=== PATIENT | female | born 1950 | race Caucasian/White ===

== ENCOUNTER 2017-07-21 12:07 | Emergency (ER) | payer OTHER ==
[~2017-07-21] VITALS: Ht 160 cm; Wt 93.1 kg
[~2017-07-21 12:07] MED LIST: ALBU25PO2; FLUT1DIS INH; LEVO100T; NAPR500T PO; [UNRECOGNIZED DRUG - REMARK]
[2017-07-21] MEDS ORDERED: SODIUM CHLORIDE 0.9% 1,000ML IVBOLUS ONE (13:30)
[2017-07-21] MEDS ORDERED: ONDANSETRON 2MG/ML, 2ML IVPush ONE (13:30)
[2017-07-21] MEDS ORDERED: SODIUM CHLORIDE FLUSH 10ML SYR IVF ONE (13:30)
[2017-07-21 13:50] LABS: HEMATOCRIT 44.4 % (34.6-47.8); HEMOGLOBIN 15.1 g/dL (11.7-16.4); WHITE BLOOD COUNT 5.8 x10^3/uL (3.4-10)
[2017-07-21 13:51] LABS: PATH.CAST-FLAG NOT PRESENT; SPERM-FLAG NOT PRESENT; SRC-FLAG NOT PRESENT; XTAL-FLAG NOT PRESENT; YLC-FLAG NOT PRESENT
[2017-07-21 13:58] LABS: BLOOD UREA NITROGEN 11 mg/dL (7-18)
[2017-07-21] MEDS ORDERED: ONDANSETRON 2MG/ML, 2ML ONE (13:58)
[2017-07-21 16:57] VITALS: BP 159/92
== END 2017-07-21 17:05 | disposition home or self-care (01) ==
LOC: ED 15:20
DX: R10.9 Unspecified abdominal pain (principal); R11.10 Vomiting, unspecified; R19.7 Diarrhea, unspecified; Z88.0 Allergy status to penicillin; E78.5 Hyperlipidemia, unspecified; E03.9 Hypothyroidism, unspecified; J45.909 Unspecified asthma, uncomplicated
CPT/HCPCS: 36415; 74022; 80048; 81001; 82040; 85025; 87086; 87324; 96361; 96374; 99285; J2405; J7030

== ENCOUNTER 2018-06-30 13:18 | Observation (INO) | payer OTHER ==
[~2018-06-30] VITALS: Ht 160 cm; Wt 98.2 kg
[~2018-06-30 13:18] MED LIST changes: +NAPR-856 PO; -NAPR500T PO
[2018-06-30] MEDS ORDERED: ASPIRIN 81 MG TABLET CHEW PO ONE (14:00)
[2018-06-30] MEDS ORDERED: ASPIRIN 81 MG TABLET EC ONE (14:05)
[2018-06-30 14:31] LABS: BASOPHILS # (AUTO) 0.03 x10^3/uL (0-0.1); BASOPHILS % (AUTO) 0 % (0-1); EOSINOPHILS # (AUTO) 0.07 x10^3/uL (0-0.4); EOSINOPHILS % (AUTO) 1 % (1-7); LYMPHOCYTES # (AUTO) 1.62 x10^3/uL (1-3.4); LYMPHOCYTES % (AUTO) 20 % (22-44); MD NO; MEAN CORPUSCULAR HGB CONC 33.9 g/dL (32.4-35.8); MEAN CORPUSCULAR VOLUME 88.6 fL (80-100); MEAN PLATELET VOLUME 7.6 fL (7.4-10.4); MONOCYTES # (AUTO) 0.75 x10^3/uL (0.2-0.8); MONOCYTES % (AUTO) 9 % (2-9); NEUTROPHILS % (AUTO) 69 % (42-75); PLATELET COUNT 297 x10^3/uL (130-400); RED BLOOD COUNT 4.89 x10^6/uL (3.82-5.3); RED CELL DISTRIBUTION WIDTH 14.3 % (9.6-15.2)
[2018-06-30 14:32] LABS: ALANINE AMINOTRANSFERASE 26 U/L (12-78); ALBUMIN 3.8 g/dL (3.4-5.0); ANION GAP 9 mmol/L (5-15); CHLORIDE 107 mmol/L (98-107); CREATININE 0.87 mg/dL (0.55-1.02)
[2018-06-30 14:35] LABS: ALKALINE PHOSPHATASE 122 U/L (45-117); BILIRUBIN,TOTAL 1.2 mg/dL (0.2-1.0); TOTAL PROTEIN 7.3 g/dL (6.4-8.2); TROPONIN I < 0.015 ng/mL (0.000-0.045)
[2018-06-30 16:24] VITALS: BP 154/87
[2018-06-30] MEDS ORDERED: NITROGLYCERIN 0.4 MG/SPRAY SL PRN (16:30)
[2018-06-30] MEDS ORDERED: morphine SULFATE 10 MG/ML, 1ML IV PRN (16:30)
[2018-06-30] MEDS ORDERED: POLYETHYLENE GLYCOL 17 GM PACKET PO PRN (16:30)
[2018-06-30] MEDS ORDERED: ENOXAPARIN 40 MG/0.4 ML SQ SCH (16:30)
[2018-06-30] MEDS ORDERED: CALCIUM CARBONATE 500 MG TAB.CHEW PO PRN (16:30)
[2018-06-30] MEDS ORDERED: ACETAMINOPHEN 650 MG/20.3 ML UDC PO PRN (16:30)
[2018-06-30] MEDS ORDERED: BISACODYL 10 MG SUPP PR PRN (16:30)
[2018-06-30] MEDS ORDERED: ONDANSETRON 2MG/ML, 2ML IVP PRN (16:30)
[2018-06-30] MEDS ORDERED: NITROGLYCERIN SINGLE TAB 0.4 MG SL PRN (16:30)
[2018-06-30] MEDS ORDERED: NITROGLYCERIN 0.4 MG BOTTLE (25 TABS) SL PRN (16:30)
[2018-06-30] MEDS ORDERED: ZOLPIDEM 5MG TABLET PO PRN (16:30)
[2018-06-30] MEDS ORDERED: MAALOX/HYOSCYAMINE/LIDOCAINE 45 ML BTL PO PRN (16:30)
[2018-06-30] MEDS ORDERED: ALBU18HF INH (16:55)
[2018-06-30] MEDS ORDERED: ATOR20TA9 PO (16:55)
[2018-06-30] MEDS ORDERED: LEVO75TA5 PO (16:55)
[2018-06-30] MEDS: PANTOPROZOLE 40MG TABLET PO SCH ×2 (17:00→17:24)
[2018-06-30] MEDS: SENNA/DOCUSATE TABLET PO SCH (17:24)
[2018-06-30] MEDS ORDERED: ALBUTEROL SULFATE 2.5 MG/3 ML NPPB PRN (17:30)
[2018-06-30] MEDS ORDERED: LORA10TA62 PO (18:10)
[2018-06-30 18:44] VITALS: BP 142/80
[2018-06-30] MEDS: SODIUM CHLORIDE FLUSH 10ML SYR IVF SCH (20:52)
[2018-06-30] MEDS ORDERED: ATORVASTATIN 20 MG TABLET PO SCH (21:00)
[2018-06-30 21:01] LABS: TROPONIN I < 0.015 ng/mL (0.000-0.045)
[2018-07-01 00:05] VITALS: BP 114/72
[2018-07-01] MEDS ORDERED: methylPREDNISolone SOD SUCC 40 MG/ML ONE (01:32)
[2018-07-01] MEDS ORDERED: FUROSEMIDE 40 MG/4 ML ONE (01:33)
[2018-07-01 03:14] LABS: LDL/HDL RATIO 0.7 (0.5-3.0)
[2018-07-01 03:15] LABS: TROPONIN I < 0.015 ng/mL (0.000-0.045)
[2018-07-01] MEDS ORDERED: LEVOTHYROXINE 75 MCG TABLET PO SCH (06:00)
[2018-07-01] MEDS ORDERED: ASPIRIN 325 MG TABLET EC PO SCH (06:00)
[2018-07-01 07:18] VITALS: BP 114/74
[2018-07-01] MEDS: SENNA/DOCUSATE TABLET PO SCH (07:54)
[2018-07-01] MEDS ORDERED: FLUT1DIS3 INH (08:42)
[2018-07-01] MEDS ORDERED: FLUTICASONE/VILANTEROL 100-25MCG/INH INH SCH (09:00)
[2018-07-01 12:24] VITALS: BP 127/76
[2018-07-01] MEDS: PANTOPROZOLE 40MG TABLET PO SCH (12:49)
[2018-07-01] MEDS: SODIUM CHLORIDE FLUSH 10ML SYR IVF SCH (12:50)
[2018-07-01] MEDS ORDERED: MAG355OR14 PO (14:44)
[2018-07-01] MEDS ORDERED: CALC200T24 PO (14:44)
[2018-07-01] MEDS ORDERED: DOCU-131 PO (14:44)
[2018-07-01] MEDS ORDERED: FAMO20TA37 PO (14:44)
== END 2018-07-01 16:45 | disposition home or self-care (01) ==
LOC: ED 14:25 → EDIP 14:50 → OBSVTOIN 14:50 → UNDOADMOB 14:50 → INTOOBSV 14:50 → 5SO 15:42 → EDIP 15:42 → 5SO 16:15 → DCLOUNGE 07-01 16:16
PROVIDERS: ADMIT Hospitalist; ATTEND Hospitalist
DX: R07.89 Other chest pain (principal); F41.9 Anxiety disorder, unspecified; R12 Heartburn; K59.00 Constipation, unspecified; E03.9 Hypothyroidism, unspecified; E78.5 Hyperlipidemia, unspecified; F32.9 Major depressive disorder, single episode, unspecified; J45.909 Unspecified asthma, uncomplicated; K21.9 Gastro-esophageal reflux disease without esophagitis; Z79.82 Long term (current) use of aspirin; Z80.1 Family history of malignant neoplasm of trachea, bronchus and lung; Z87.891 Personal history of nicotine dependence; Z90.49 Acquired absence of other specified parts of digestive tract
CPT/HCPCS: 36415; 71045; 78452; 80053; 80061; 84443; 84484; 85025; 93005; 93017; 94640; 96372; 99285; A9502; C9898; G0378; J1650; J7613